=== PATIENT | female | born 1990 | race Caucasian/White ===

== ENCOUNTER 2019-06-20 14:09 | Inpatient (IN) | payer OTHER, SELFPAY ==
[2019-06-20 14:36] VITALS: BMI 33.6
--- NOTE | 2019-06-20 16:21 | PDOC.EVN ---
Event Note - Event Note Event Note: patient came to hospital for scheduled c/s. had eaten lunch. anesthesia requires NPO for 8 hr before procedure which would be 2200 tonight and patient would be add on case. Elected to reschedule for 06/23/19 at 1600. instructed not to eat after 0600 on date of procedure and to arrive at [facility] L&D by 1400. Cheesemaker used. NST reactive. Given RTC precautions and schedule for rLTCS on wednesday.
[2019-06-22] MEDS ORDERED: MORPHINE 5 MG/10 ML PF VIAL ONE (07:11)
[2019-06-22] MEDS ORDERED: PHENYLEPHRINE-NS 100 MCG/ML 10 ML SYRINGE ONE (07:12)
[2019-06-22] MEDS ORDERED: Oxytocin 10 UNITS/ML VIAL ONE (07:12)
[2019-06-23] MEDS ORDERED: CEFAZOLIN 2 GM in Premix Bag 1 BAG IVPB SCH (15:15)
[2019-06-23] MEDS ORDERED: Bicitra 30 ML UDCUP PO SCH (15:15)
[2019-06-23] MEDS: Lactated Ringer's 1,000 ML IV SCH ×2 (15:15→17:54)
[2019-06-23] MEDS ORDERED: Promethazine HCl 25 MG/ML VIAL IM PRN ×2 (15:16→17:19)
[2019-06-23] MEDS ORDERED: hydrALAZINE 20 MG/ML VIAL SLOW IVP PRN ×2 (15:16→20:08)
[2019-06-23] MEDS ORDERED: Acetaminophen 500 MG TAB PO PRN (15:16)
[2019-06-23] MEDS ORDERED: Ondansetron PF 4 MG/2 ML Vial IVP PRN ×3 (15:16→20:08)
[2019-06-23] MEDS ORDERED: Docusate 100 MG CAP PO PRN (15:16)
[2019-06-23] MEDS ORDERED: Bicitra 30 ML UDCUP ONE (15:49)
[2019-06-23] MEDS ORDERED: MORPHINE 5 MG/10 ML PF VIAL ONE (15:51)
[2019-06-23] MEDS ORDERED: PHENYLEPHRINE-NS 100 MCG/ML 10 ML SYRINGE ONE (15:52)
[2019-06-23] MEDS ORDERED: Oxytocin 10 UNITS/ML VIAL ONE ×2 (15:52→17:43)
--- NOTE | 2019-06-23 16:06 | PDOC.FPROB ---
FMR OB H&P: HPI - History of Present Illness Chief Complaint: Scheduled repeat C/S Indentification: 29 year old at 39.5 wk by LMP/17.4 wk sono History of Present Illness: 29 year old at 39.5 wk by LMP/17.4 wk sono presents for scheduled repeat C/S. Patient endorses good movement. Patient denies vaginal bleeding, vaginal discharge, LoF, contractoins. Patient presented on 06/20 for C/ S but had eaten an hour prior to scheduled surgery so she was sent home and C/S was rescheduled for today. Primary Care Physician: MARIA TERESA Adamson FMR OB H&P: Current - Care : 2 Para: 1102 Gestational age: 39.5 wk Due date: 06/25/2019 Dating Criteria: LMP/17.4 wks - OB Labs Blood type: O RH: positive Antibody Screen: negative HIV: negative RPR: negative HepBsAg: negative Rubella: immune Gonorrhea: negative Chlamydia: positive (05/29/2019) 1 hour gtt: neg GBS: negative FMR OB H&P: History - Past Medical History PMH: Denies any significant PMH - OB History OB History: Past OB Hx: Oligohydramnios with C/S at 7 months, rLTCS at 37 wks - sections performed in [facility] TB risk: negative TB within last year. Hx PTD: 2/2 oligohydramnios. Was not a candidate for [facility]. Refugee from [facility]: TB negative within last year Chlamydia positive: SADE neg 04/28, but repeat testing in 3T positive 05/29. IUGR/urinary tract dilation on anatomy sono: Resolved. - GLOBE MOUNTER History GLOBE MOUNTER History: Hx of chlamydia in current . SADE neg 04/28. Repeat testing in 3T positive on 05/29. Uncertain if patient received treatment. - Surgical History Sx History: rLTCS x2 - Social History Social History: Denies alcohol, tobacco, or drug use - Family History Family History: FH DM FMR OB H&P: Medications - Current Home Medications: Medication Instructions Recorded Confirmed Type [id number]/Iron Fum/Folic/Docusate 1 tablet PO DAILY 06/20/19 06/20/19 History [ 19] Allergies/Adverse Reactions: Allergies Allergy/AdvReac Type Severity Reaction Status Date / Time No Known Allergies Allergy Unverified 06/20/19 14:32 FMR OB H&P: ROS - Review of Systems General: denies: fever/chills Eyes: denies: vision changes, scotomas ENT: denies: nasal congestion, rhinorrhea, sore throat Cardiovascular: denies: chest pain, palpitation, edema Respiratory: denies: cough, congestion, shortness of breath Gastrointestinal: denies: abdominal pain, nausea, vomiting, diarrhea Genitourinary (Female): denies: dysuria, vaginal bleeding, contractions Neurologic: denies: numbness, syncope Integumentary: denies: itching, rash Hematologic/Lymphatic: denies: prolonged or excessive bleeding Psychological: denies: depression, anxiety FMR OB H&P: Vital Signs - Maternal Vital signs: BP 115/74 Pulse 66 Afebrile - Heart Tones Baseline: 140 Variability: moderate Acceleration: present Deceleration: absent Category: category 1 [place] contractions every: Intermittent FMR OB H&P: Physical Exam - Physical Exam General: NAD, awake, alert and oriented HEENT: MMM, grossly normal vision, grossly normal hearing Heart: pulses present General: no respiratory distress, good air movement Abdomen: soft, gravid Musculoskeletal: pulses present, FROM in all four extremities Neurological: no tremor, no focal deficit Skin: no rash, capillary refill <2 seconds Lymphatic: no unusual bruising or bleeding, no purpura Psychiatric: intact recent and remote memory, good judgement and insight, normal mood and affect FMR OB H&P: A/P - Problem List (1) History of delivery Current Visit: Yes Status: Acute Code(s): Z98.891 - HISTORY OF UTERINE SCAR FROM PREVIOUS SURGERY (2) Chlamydia Current Visit: Yes Status: Acute Code(s): A74.9 - CHLAMYDIAL INFECTION, UNSPECIFIED Disposition: 29 year old at 39.5 wks by LMP/17.4 wk sono presents for repeat scheduled CS Encounter for scheduled repeat C/S - Scheduled on 05/20, but ate prior to scheduled C/S and was sent home and rescheduled - Category I strip - Posterior placenta - Labs pending at this time Hx LTCS x2 - Done in [facility], no op reports available for review PTD at 35 wks - 2/2 oligohydramnios FGR with bilateral pylectasis on anatomy sono which resolved Chlamydia in - SADE neg 04/28, but repeat in 3T on 05/29 positive - No SADE available, uncertain if patient treated, will obtain GC/CT Dispo: Admit to L&D for scheduled rLTCS. Discussion: Date/Time: 06/23/19 0060 This H&P was discussed with Dr. Hendrix who agrees with the above documentation and plan. Signature: Diane Adamson, DO PGY-3 Addendum - Attending - Attending Attestation Date/Time: 06/23/19 [id number] I personally evaluated the patient and discussed the management with Dr. Adamson I agree with the History, Examination, Assessment and Plan documented above with any addition or exceptions noted below. Chlamyida positive with neg SADE but no repeat screening in 3T. rLTCS R/B/A discussed.
[2019-06-23 16:08] LABS: #Lymphocytes 1.7 thou/uL (1.20-3.40); #Monocytes 0.6 thou/uL (0.11-0.59); #Neutrophils 5.5 thou/uL (1.40-6.50); %Basophils 0.4 % (0.0-1.0); %Eosinophils 0.6 % (0.0-10.0); %Lymphocytes 21.1 % (21.0-51.0); %Monocytes 7.3 % (0.0-10.0); %Neutrophils 70.6 % (42.0-75.0); Hemoglobin 13.4 g/dL (12.0-16.0); Mean Corpuscular HGB CONC 34.5 g/dL (32.0-36.0); Mean Corpuscular Hemoglobin 31.6 pg (27.0-31.0); Mean Corpuscular Volume 91.6 fL (78.0-98.0); Mean Platelet Volume 7.5 fL (7.4-10.4); Platelet Count 237 thou/uL (130-400); Red Blood Cell (RBC) Count 4.25 mill/uL (4.20-5.40); White Blood Cell (WBC) Count 7.8 thou/uL (4.8-10.8)
[2019-06-23 16:34] LABS: Syphilis Antibody Nonreactive (Nonreactive); Syphilis Antibody Index 0.06 S/CO (<1.00 Non-Reactive)
[2019-06-23 16:35] LABS: HBSAg Index 0.21 S/CO (0-0.99); Hep B Surf Ag Non-Reactive S/CO (NonReactive)
[2019-06-23] MEDS ORDERED: Meperidine HCl/PF 25 MG/ML VIAL SLOW IVP PRN (17:19)
[2019-06-23] MEDS ORDERED: Ketorolac Tromethamine 30 MG/ML VIAL IVP PRN (17:19)
[2019-06-23] MEDS ORDERED: L&D-Morphine 4 MG/ML VIAL SLOW IVP PRN (17:19)
[2019-06-23] MEDS ORDERED: HYDROmorphone 2 MG/ML VIAL SLOW IVP PRN (17:19)
[2019-06-23] MEDS ORDERED: Naloxone HCl 0.4 mg/ml Vial IV PRN (17:19)
[2019-06-23] MEDS ORDERED: diphenhydrAMINE 50 MG/ML VIAL IVP PRN (17:19)
[2019-06-23] MEDS ORDERED: Promethazine HCl 25 MG SUPP PR PRN (17:19)
[2019-06-23] MEDS ORDERED: Naloxone HCl 0.4 mg/ml Vial IVP PRN ×2 (17:19)
[2019-06-23] MEDS ORDERED: Ondansetron HCl/PF 4 MG/2 ML Vial IVP PRN (17:19)
[2019-06-23] MEDS ORDERED: Ketorolac Tromethamine 30 MG/ML VIAL IVP SCH (17:30)
[2019-06-23] MEDS ORDERED: Communication Order-Pharmacy FS SCH (17:30)
[2019-06-23] MEDS ORDERED: Morphine 4 MG/ML VIAL ONE (17:38)
[2019-06-23] MEDS ORDERED: Ketorolac Tromethamine 30 MG/ML VIAL ONE (18:42)
[2019-06-23] MEDS ORDERED: NS / Oxytocin 40 units/1000ml 1,000 ML IV SCH (18:45)
[2019-06-23] MEDS ORDERED: Lanolin Ointment 7 GM TUBE TOP PRN (20:08)
[2019-06-23] MEDS ORDERED: Acetaminophen 325 MG TAB PO PRN (20:08)
[2019-06-23] MEDS ORDERED: Misoprostol 200 MCG TAB PR PRN (20:08)
[2019-06-23] MEDS ORDERED: Methylergonovine 0.2 MG/ML VIAL IM PRN (20:08)
--- NOTE | 2019-06-24 01:36 | PDOC.PP ---
Post Progress Note Post Day #: 1 Subjective: Patient doing well. No significant overnight events. Patient states lochia normal. She denies significant abdominal pain. PO intake tolerated: yes Flatus: yes Ambulation: yes Vital Signs (12 hours) Temp Pulse Resp BP Pulse Ox 06/23/19 22:40 97.5 F L 63 18 113/66 06/23/19 21:40 97.5 F L 56 L 18 106/66 06/23/19 20:40 97.7 F 56 L 20 110/61 97 Weight Weight 75.75 kg - Physical Examination General: NAD Cardiovascular: RRR Deviation from normal: 2/6 systolic murmur Respiratory: clear to auscultation bilaterally, non-labored breathing Abdominal: + bowel sounds, lochia (minimal), no distention, appropriately TTP Fundus firm & at: below umbilicus Extremities: negative homans (B) Skin: CS incision dry & intact (dressing in place, clean and dry), no rash Neurological: no gross focal deficits Psychiatric: A&Ox3, normal affect Result Diagrams: 06/24/19 06:49 Additional Labs: Post Labs Blood Type O POSITIVE 06/23/19 21:35 Hep Bs Antigen Non-Reactive S/CO (NonReactive) 06/23/19 15:05 (1) History of delivery Code(s): Z98.891 - HISTORY OF UTERINE SCAR FROM PREVIOUS SURGERY Status: Acute (2) Chlamydia Code(s): A74.9 - CHLAMYDIAL INFECTION, UNSPECIFIED Status: Acute - Assessment/Plan 29 year old delivered TAGA M at 16:49 on 06/23 via rLTCS. Apgars 8/9. Routine PP care - Meeting PP milestones - Rh positive, rubella immune - GBS neg - C/S bandage in place, clean and dry - Lochia minimal Chlamydia in - s/p neg SADE s/p rLTCS - Urine output 800 mL documented - Encourage ambulation - Bandage intact, clean and dry Dispo: Stable. Anticipate d/c home tomorrow or Wednesday. Addendum - Attending - Attending Attestation Date/Time: 06/24/19 0752 I personally evaluated the patient and discussed the management with Dr. Adamson. I agree with the History, Examination, Assessment and Plan documented above with any addition or exceptions noted below.
[2019-06-24] MEDS: Lactated Ringer's 1,000 ML IV SCH ×2 (04:08→16:43)
[2019-06-24] MEDS: Ferrous Sulfate 325 MG TAB PO SCH ×3 (05:22→21:23)
[2019-06-24] MEDS: Docusate Calcium (SURFAK) 240 MG CAP PO SCH ×3 (05:22→21:22)
[2019-06-24 07:13] LABS: Hemoglobin 11.1 g/dL (12.0-16.0); Mean Corpuscular HGB CONC 35.9 g/dL (32.0-36.0); Mean Corpuscular Hemoglobin 32.4 pg (27.0-31.0); Mean Corpuscular Volume 90.4 fL (78.0-98.0); Mean Platelet Volume 7.2 fL (7.4-10.4); Platelet Count 176 thou/uL (130-400); RBC Distribution Width 12.8 % (11.5-14.5); Red Blood Cell (RBC) Count 3.42 mill/uL (4.20-5.40); White Blood Cell (WBC) Count 9.6 thou/uL (4.8-10.8)
[2019-06-24] MEDS ORDERED: Adacel (T-DAP) 0.5 ML SYRINGE IM ONE (09:00)
[2019-06-24] MEDS: Prenatal Vitamin 1 TAB PO SCH (09:40)
--- NOTE | 2019-06-24 13:17 | OP ---
DATE OF PROCEDURE: 06/23/2019 RESIDENT SURGEON: Dr. Diane Adamson. GIFT SHOP ASSISTANT SURGEON: Dr. Razia Trejo. ATTENDING SURGEON: Dr. Zach Hendrix PROCEDURE PERFORMED: Repeat low transverse section. PREOPERATIVE DIAGNOSES: 1. Term intrauterine . 2. Previous . 3. Chlamydia in , status post negative [id number]. POSTOPERATIVE DIAGNOSES: 1. Term intrauterine , delivered. 2. Status post repeat low transverse . 3. Chlamydia in , status post negative [id number]. ANESTHESIA: Spinal. INDICATIONS: The patient is a 29-year-old, G3, P1-1-0-2 at 39 and 5 weeks gestation by LMP and a 17 and 4 week sonogram, who presented for repeat scheduled C- section. PROCEDURE IN DETAIL: After risks, benefits, and alternatives were explained to the patient, she gave informed consent. Preoperative antibiotics included cefazolin 2 g IV. The patient was taken to the operating room and spinal anesthesia was initiated. She was placed in supine position with a left tilt and prepped and draped in the usual sterile fashion. The Pfannenstiel incision was made with a scalpel and carried down to the level of the fascia, which was sharply nicked. The fascial cut was extended bilaterally with Savage scissors. The inferior and superior edges of the cut fascial edges were elevated with Tan clamps, and the underlying rectus muscles were sharply and bluntly dissected free. The recti were divided digitally and retracted manually. The peritoneum was entered bluntly and retracted manually. There was noted to be to some adhesions on the uterus in the right side. However, there was enough space for an Bronson O. An Bronson O was placed. The bladder flap was created with Metzenbaum scissors. A low transverse score was made with a scalpel, and the uterus was entered in the midline with a scalpel. Clear fluid was seen. Hysterotomy was extended manually. The was noted to be vertex and was easily delivered by fundal pressure. Mouth and nares were bulb suctioned. Cord was clamped and cut, and grossly normal male infant was handed to the waiting nurse. Cord blood was obtained. The placenta was spontaneously extracted and found to be intact with three-vessel cord and discarded. Placenta did appear small. The endometrium was curetted with a dry lap. The uterus was then closed with a running locking #1 Monocryl, followed by a running nonlocking #1 Monocryl imbricating suture. Following this, hemostasis was noted. Bleeders on the serosa were cauterized. The Bronson O was removed, and the hysterotomy was again inspected for hemostasis. The fascia was closed with a running nonlocking 0 PDS suture. The subcutaneous tissue was then irrigated, and bleeders were cauterized. The subcutaneous tissue was brought together using 2-0 plain gut with simple interrupted sutures. The skin was then approximated using 4-0 monofilament. Dermabond was placed. A pressure dressing was placed. All counts were correct. The patient tolerated the procedure well, was taken to the recovery room in stable condition. QUANTITATIVE BLOOD LOSS: 413 mL. COMPLICATIONS: None. SPECIMEN: Cord blood sent to lab for blood type. FINDINGS: Grossly normal male with Apgars of 8 and 9 at one and five minutes respectively. Grossly normal placenta with 3-vessel cord was discarded. DRAINS: Bush to gravity, draining clear urine. ATTENDING ADDENDUM: I was present for the entire procedure and agree with the above documentation. Job ID: [id number] [facility]
[2019-06-24] MEDS: HYDROcodone/Acetaminophen 5/325 mg Tablet PO PRN (16:58)
[2019-06-24] MEDS: Ibuprofen 800 MG TAB PO SCH (21:22)
[2019-06-25] MEDS: Ibuprofen 800 MG TAB PO SCH ×2 (05:47→14:41)
[2019-06-25] MEDS: HYDROcodone/Acetaminophen 5/325 mg Tablet PO PRN (05:47)
[2019-06-25] MEDS: Lactated Ringer's 1,000 ML IV SCH ×2 (05:50→09:12)
[2019-06-25 08:25] VITALS: TEMP 98.8
[2019-06-25] MEDS: Ferrous Sulfate 325 MG TAB PO SCH (09:12)
--- NOTE | 2019-06-25 09:14 | PDOC.PP ---
Post Progress Note Post Day #: 2 Subjective: Patient doing well. POD #2. Patient states she is having some pain on left side of incision. She is able to ambulate without difficulty. She is passing flatus. Patient states lochia minimal. PO intake tolerated: yes Flatus: yes Ambulation: yes Vital Signs (12 hours) Temp Pulse Resp BP Pulse Ox 06/25/19 07:32 98.8 F 75 16 117/62 95 06/25/19 04:26 99.0 F 85 18 104/60 06/25/19 00:58 98.4 F 70 18 98/56 L 06/24/19 21:18 98.3 F 81 18 114/61 95 Weight Weight 75.75 kg - Physical Examination General: NAD Cardiovascular: RRR Deviation from normal: systolic murmur Respiratory: clear to auscultation bilaterally, non-labored breathing Abdominal: + bowel sounds, lochia (small amount), no distention, appropriately TTP Fundus firm & at: below umbilicus Extremities: negative homans (B) Skin: CS incision dry & intact, no rash Neurological: no gross focal deficits Psychiatric: A&Ox3, normal affect Result Diagrams: 06/24/19 06:49 Additional Labs: Post Labs Blood Type O POSITIVE 06/23/19 21:35 Hep Bs Antigen Non-Reactive S/CO (NonReactive) 06/23/19 15:05 (1) History of delivery Code(s): Z98.891 - HISTORY OF UTERINE SCAR FROM PREVIOUS SURGERY Status: Acute (2) Chlamydia Code(s): A74.9 - CHLAMYDIAL INFECTION, UNSPECIFIED Status: Acute - Assessment/Plan 29 year old delivered TAGA M at 16:49 on 06/23 via rLTCS. Apgars 8/9. Routine PP care - POD #2 - Meeting PP milestones - Rh positive, rubella immune - GBS neg - C/S incision clean, dry, intact - Lochia minimal Chlamydia in - s/p neg SADE s/p rLTCS - Encourage ambulation - Incision clean, dry, intact - Pain well controlled Dispo: Stable. Plan for d/c home today. Addendum - Attending - Attending Attestation Date/Time: 06/26/19 1103 I personally evaluated the patient and discussed the management with Dr. Adamson on 06/25. I agree with the History, Examination, Assessment and Plan documented above with any addition or exceptions noted below.
[2019-06-25] MEDS: Docusate Calcium (SURFAK) 240 MG CAP PO SCH (09:42)
[2019-06-25] MEDS: Prenatal Vitamin 1 TAB PO SCH (09:42)
[2019-06-25 12:00] VITALS: BP 105/61
== END 2019-06-25 16:20 | disposition home or self-care (01) | DRG 788 ==
LOC: L&D 14:09 → UNDOADMIN 14:09 → L&D-LIB 06-23 14:17 → 3SW 06-23 21:22
PROVIDERS: ADMIT Family Medicine; ATTEND Family Medicine
PROC: 10D00Z1 Extraction of Products of Conception, Low, Open Approach (ICD-10-PCS; principal; 2019-06-23)
DX: O34.211 Maternal care for low transverse scar from previous cesarean delivery (principal); Z3A.39 39 weeks gestation of pregnancy; Z37.0 Single live birth
CPT/HCPCS: 36415; 85025; 85027; 86780; 86850; 86900; 86901; 87340; J0690; J1200; J1885; J2270; J2274; J2310; J2590

== ENCOUNTER 2020-03-12 19:06 | Emergency (ER) | payer MEDICAID, SELFPAY ==
[2020-03-12 19:57] LABS: #Basophils 0.1 thou/uL (0.0-0.2); #Eosinphils 0.1 thou/uL (0.0-0.7); #Lymphocytes 2.9 thou/uL (1.20-3.40); #Monocytes 0.5 thou/uL (0.11-0.59); #Neutrophils 4.1 thou/uL (1.40-6.50); %Basophils 1.4 % (0.0-1.0); %Eosinophils 1.7 % (0.0-10.0); %Lymphocytes 37.6 % (21.0-51.0); %Monocytes 6.3 % (0.0-10.0); Hemoglobin 12.1 g/dL (12.0-16.0); Mean Corpuscular HGB CONC 34.5 g/dL (32.0-36.0); Mean Corpuscular Hemoglobin 30.4 pg (27.0-31.0); Mean Corpuscular Volume 87.9 fL (78.0-98.0); Mean Platelet Volume 6.8 fL (7.4-10.4); Platelet Count 297 thou/uL (130-400); RBC Distribution Width 11.2 % (11.5-14.5); Red Blood Cell (RBC) Count 3.99 mill/uL (4.20-5.40); White Blood Cell (WBC) Count 7.7 thou/uL (4.8-10.8)
[2020-03-12 20:05] LABS: BHCG - Serum Negative (NEGATIVE); Pregs Control Background? CLEAR/WHITE (CLR/WHITE); Pregs Control Bar Appear? YES (CONTROL BAR)
[2020-03-12 20:19] LABS: ALT (SGPT) 9 U/L (8-55); AST (SGOT) 17 U/L (5-34); Albumin 4.3 g/dL (3.5-5.0); Alkaline Phosphatase 105 U/L (40-110); Anion Gap 14 mmol/L (10-20); BUN (Urea Nitrogen) 9 mg/dL (7.0-18.7); Bilirubin, Total 0.2 mg/dL (0.2-1.2); Calc. Creatinine Clearance 0 mL/min (70-130); Calcium 9.1 mg/dL (7.8-10.44); Carbon Dioxide 25 mmol/L (22-29); Chloride 104 mmol/L (98-107); Estimated GFR-MDRD Greater than 90; Globulin 3.4 g/dL (2.4-3.5); Glucose 96 mg/dL (70-105); Potassium 3.9 mmol/L (3.5-5.1); Protein, Total 7.7 g/dL (6.0-8.3); Sodium 139 mmol/L (136-145)
[2020-03-12 21:30] LABS: Bilirubin Negative (Negative); Blood, Urine 3+ (Negative); Clarity Clear (Clear); Glucose, Urine (Dipstick) Normal (Negative); Ketone, Urine Negative (Negative); Leukocyte Negative Leu/uL (Negative); Nitrite Negative (Negative); Protein, Urine (Dipstick) 10 mg/dL (Neg-Trace); RBC/HPF Greater than 50 HPF (0-3); Squamous Epithelial 0-3 HPF (0-3); Urobilinogen Normal mg/dL (Less than 2); pH, Urine 6.5 (5.0-9.0)
[2020-03-12 21:31] LABS: Bacteria/HPF 2+ HPF (None Seen)
[2020-03-12] MEDS ORDERED: Ibuprofen 800 MG TAB ONE (22:33)
== END 2020-03-12 22:53 | disposition home or self-care (01) ==
LOC: ERS 19:06
DX: N93.9 Abnormal uterine and vaginal bleeding, unspecified (principal)
CPT/HCPCS: 36415; 80053; 81003; 81015; 84703; 85025; 99284